=== PATIENT | male | born 1975 | race Caucasian/White ===

== ENCOUNTER 2023-02-21 02:25 | Outpatient (CLI) | payer BC, SELFPAY ==
[2023-02-21 15:33] LABS: ALT 28 U/L (16-63); AST 13 U/L (15-37); Albumin 3.8 g/dL (3.4-5.0); Alkaline Phosphatase 68 U/L (46-116); BUN 19 mg/dL (7-18); Bilirubin, Total 0.2 mg/dL (0.2-1.0); CREATININE 1.2 mg/dL (0.70-1.30); Calcium 9.1 mg/dL (8.5-10.1); Calculated LDL 118 mg/dL (<100); Chloride 103 mmol/L (98-107); Cholesterol 198 mg/dL (<200); Estimated GFR 74.13 (mL/min/1.73m2); Glucose 115 mg/dL (74-106); HDL Cholesterol 42 mg/dL (40-60); Potassium 4.1 mmol/L (3.5-5.1); Sodium 139 mmol/L (136-145); Total Protein 7.5 g/dL (6.4-8.2); Triglyceride 193 mg/dL (<150)
== END 2023-02-21 02:26 | disposition home or self-care (01) ==
LOC: LBO 02:25
PROVIDERS: PCP Family Medicine; Visit Provider Family Medicine
DX: R22.1 Localized swelling, mass and lump, neck (principal); Z72.0 Tobacco use; Z00.00 Encounter for general adult medical examination without abnormal findings; Z13.220 Encounter for screening for lipoid disorders
CPT/HCPCS: 36415; 80053; 80061

== ENCOUNTER 2023-11-18 06:17 | Emergency (ER) | payer BC, SELFPAY ==
--- NOTE | 2023-11-18 06:15 | DI.RAD_ITS ---
Exam(s) XR ANKLE RT COMPLETE EXAM: XR ANKLE RT COMPLETE CLINICAL HISTORY: twist/fall last night. TECHNIQUE: 2D digital imaging was performed of the right ankle. Three images were obtained. AP, la teral and oblique views were obtained. COMPARISON: No exams were available for comparison FINDINGS: BONES: There is an acute nondisplaced fracture through the proximal diaphysis of the right 5th metata rsal. This is only appreciated on the lateral view of the ankle. No bony destructive lesion is seen . JOINTS: The ankle mortise is normally aligned. SOFT TISSUE: Normal. IMPRESSION: Nondisplaced fracture involving the right 5th metatarsal bone. DATA REPOSITORY: RADIATION DOSE DELIVERED:
[2023-11-18 06:22] VITALS: BP 117/81; PULSE 71; RESP 16; TEMP 35.5; O2SAT 97
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
== END 2023-11-18 07:15 | disposition home or self-care (01) ==
PROVIDERS: Emergency Provider Emergency Medicine Emergency Medical Services; PCP Family Medicine
DX: S93.401A Sprain of unspecified ligament of right ankle, initial encounter (principal); W13.9XXA Fall from, out of or through building, not otherwise specified, initial encounter
CPT/HCPCS: 99283; 73610

== ENCOUNTER → 2024-01-17 11:28 | Outpatient (CLI) | payer BC, SELFPAY ==
--- NOTE | 2024-01-17 11:15 | DI.RAD_ITS ---
Exam(s) XR FOOT RT COMPLETE EXAM: XR FOOT RT COMPLETE CLINICAL HISTORY: Pain at 5th distal metatarsal, rt foot pain, M79.671. TECHNIQUE: 2D digital imaging was performed. COMPARISON: CR XR ANKLE RT COMPLETE from 11/18/2023 FINDINGS: 3 views There is a mildly displaced slightly oblique fracture the junction of the proximal mid thirds of the 5th meta tarsal. No additional fractures evident. No diastasis of the Lisfranc joint. No osseous l esions. No radiopaque foreign body IMPRESSION: Fifth metatarsal fracture as described above. DATA REPOSITORY: RADIATION DOSE DELIVERED:
== END ==
PROVIDERS: PCP Family Medicine; Visit Provider Family Medicine
DX: S92.351A Displaced fracture of fifth metatarsal bone, right foot, initial encounter for closed fracture (principal); X58.XXXA Exposure to other specified factors, initial encounter
CPT/HCPCS: 73630

== ENCOUNTER 2025-07-30 12:56 | Outpatient (CLI) | payer OTHER, SELFPAY ==
--- NOTE | 2025-07-30 11:00 | DI.RAD_ITS ---
Exam(s) XR ANKLE RT COMPLETE EXAM: XR ANKLE RT COMPLETE CLINICAL HISTORY: Intermittent pain in the fibula M79.671 PAIN RT FOOT. TECHNIQUE: 2D digital imaging was performed. Three views. COMPARISON: CR XR ANKLE RT COMPLETE from 11/18/2023 CR XR FOOT RT COMPLETE from 01/17/2024 FINDINGS: BONES: No acute fracture is present. The previously noted fracture at the proximal 5th metatarsal is again noted. There is bony bridging but faint lucency remains. No bony destructive lesion is seen. The distal fibula is unremarkable. JOINTS: The ankle mortise is normally aligned. There are no significant degenerative changes. SOFT TISSUE: Normal. IMPRESSION: Old 5th metatarsal fracture. No acute abnormality. DATA REPOSITORY: RADIATION DOSE DELIVERED:
== END 2025-07-30 13:16 ==
PROVIDERS: PCP Family Medicine; Visit Provider Family Medicine
DX: M79.671 Pain in right foot (principal)
CPT/HCPCS: 73610